=== PATIENT | female | born 1950 | race Caucasian/White ===

== ENCOUNTER 2017-02-07 10:50 | Inpatient (IN) | payer MEDICARE ==
[~2017-02-07] VITALS: Ht 165.1 cm; Wt 88.9 kg
[2017-02-07 12:23] LABS: HEMOGLOBIN 13.3 gm/dl (12.3-15.3); RED BLOOD COUNT 4.14 M/UL (4.00-5.10); WHITE BLOOD COUNT 8.6 K/UL (4.5-11.0)
[2017-02-07 12:45] LABS: BUN/CREATININE RATIO 12 (0-10)
[2017-02-07] MEDS ORDERED: SYNTHROID100 MCG PO (22:01)
[2017-02-07] MEDS ORDERED: CARDIZEM CD180 MG PO (22:02)
[2017-02-07] MEDS ORDERED: ADULT LOW DOSE81 MG PO (22:03)
[2017-02-07] MEDS ORDERED: SPIRIVA18 MCG INH (22:03)
[2017-02-08 06:52] LABS: HEMOGLOBIN 12.3 gm/dl (12.3-15.3); RED BLOOD COUNT 3.84 M/UL (4.00-5.10); WHITE BLOOD COUNT 6.6 K/UL (4.5-11.0)
[2017-02-08 07:16] LABS: BUN/CREATININE RATIO 16 (0-10)
--- NOTE | 2017-02-09 00:14 | NUR ---
PT IS REFUSING BOTH 2200 AND 0600 CARDIZEM DOSES. 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 I VERIFIED THE ORDERS ON THE CHART. THE PT WAS CHANGED TO A 90 MG TID DOSE ON THE AT 1803. THIS IS THE LAST ORDER REGARDING THE CARDIZEM. I TOLD THE PT I VERIFIED THIS AND SHE CONTINUTED TO REFUSE, STATING SHE WOULD "VERIFY IT HERSELF WITH HER DOCTOR IN THE MORNING." I CALLED PHARMACY TO MAKE SURE THEY DID NOT HAVE ANY DIFFERENT ORDERS. THEY STATED THAT THEY DID NOT AND TO JUST HAVE IT CLARIFIED IN THE MORNING. I WILL PASS THIS ON TO THE DAY SHIFT RN.
[2017-02-09 06:12] LABS: BUN/CREATININE RATIO 23 (0-10)
[2017-02-10] MEDS ORDERED: MUCINEX600 MG PO (16:08)
[2017-02-10] MEDS ORDERED: ATROVENT INH S2.5 ML INH (16:14)
[2017-02-10] MEDS ORDERED: PROVENTIL HFA 61 INH INH (16:16)
[2017-02-10] MEDS ORDERED: PREDNISONE10 M1 PO (16:18)
== END 2017-02-10 17:21 | disposition home or self-care (01) | DRG 189 ==
LOC: ER1 10:50 → ZEROF 16:59 → MED SURG 4 16:59
PROVIDERS: Emergency Medicine; Family Medicine; ADMIT Internal Medicine
DX: J96.01 Acute respiratory failure with hypoxia (principal); J44.1 Chronic obstructive pulmonary disease with (acute) exacerbation; I47.2 Ventricular tachycardia; J44.0 Chronic obstructive pulmonary disease with (acute) lower respiratory infection; E03.9 Hypothyroidism, unspecified; E83.42 Hypomagnesemia; J20.9 Acute bronchitis, unspecified; I10 Essential (primary) hypertension; J98.6 Disorders of diaphragm; E66.9 Obesity, unspecified; Z87.891 Personal history of nicotine dependence; Z68.31 Body mass index [BMI] 31.0-31.9, adult; Z79.82 Long term (current) use of aspirin; Z79.899 Other long term (current) drug therapy; Z90.49 Acquired absence of other specified parts of digestive tract; Z98.890 Other specified postprocedural states; Z82.49 Family history of ischemic heart disease and other diseases of the circulatory system; Z83.3 Family history of diabetes mellitus; Z84.89 Family history of other specified conditions
CPT/HCPCS: ECHO; 36415; 36600; 71020; 80048; 80053; 80061; 81001; 82550; 82553; 82803; 83605; 83690; 83735; 83874; 83880; 84439; 84443; 84484; 85025; 85610; 85730; 87040; 93005; 93306; 94640; 94664; 94760; 96361; 96374; 96376; 99285; J0696; J1650; J2920; J2930; J7030; J7050; Q9963